=== PATIENT | male | born 1935 | race Caucasian/White ===

== ENCOUNTER → 2019-04-21 | Outpatient (CLI) | payer OTHER ==
[~2019-04-21] MED LIST: GENTAK 3 MG/M3 MG/M1 OP; NOHOMEMEDICATIONS
== END ==
LOC: M.RAD 10:39
DX: I77.810 Thoracic aortic ectasia (principal); R06.02 Shortness of breath

== ENCOUNTER → 2019-04-25 | Outpatient (CLI) | payer OTHER | LOC: M.CT 13:00 | DX: I77.810 Thoracic aortic ectasia (principal); I25.10 Atherosclerotic heart disease of native coronary artery without angina pectoris; E27.9 Disorder of adrenal gland, unspecified; J92.9 Pleural plaque without asbestos ==

== ENCOUNTER → 2021-08-15 | Outpatient (CLI) | payer OTHER ==
--- NOTE | 2021-08-15 17:05 | CARDNUC ---
[place] [address] CARDIAC NUCLEAR IMAGING REPORT Name: JAM,TERESA KRUGER Room: [facility]#: [id number] Admission: 08/15/21 Attend Phys: Jacob Yun, Discharge: Date of : 39 Date of Service: 08/15/21 1705 Report #: [id number] THIS REPORT FOR: cc: Brian Parisi MD, Dean L. MD Liston, Michael J. MD [facility] ~ APPROVED REPORT Study performed: 08/15/2021 08:47:25 Exam: Nuclear Stress Test Indication: Chest pain Patient Location: Out-Patient Stress Tech: kayy zepeda Stress Nurse: Rayna Lanier RN NM Tech:JIM Velazquez Ht: 5 ft 10 in Wt: 172 lbs BSA: 1.96 m2 BMI: 24.67 Medical History Medical History: Diabetes, HTN, Hyperlipidemia Medications: clopidogrel, eliquis, lisinopril, metoprolol, simvastatin Allergies: januvia Cardiac Risk Factors: Age, DM, HTN, Hyperlipidemia Exercise History: Indeterminate Meds Held (24 hrs): metoprolol Stress Test Details Stress Test: Pharmacologic stress testing performed using 0.4 mg of regadenoson per 5 mL given IV over 10 seconds. Reason for pharmacologic stress test: arthritis. HR Resting HR: 67 bpm Max Heart Rate (APMHR): 137 bpm Max HR Achieved: 86 bpm Target HR (85% APMHR): 116 bpm % of APMHR: 62 Recovery HR: 77 bpm BP Resting BP: 157/88 mmHg Max BP: 147/[place] [address] CARDIAC NUCLEAR IMAGING REPORT Name: JAMTERESA SLICK Room: [facility]#: [id number] Admission: 08/15/21 Attend Phys: Jacob Yun, Discharge: Date of : 39 Date of Service: 08/15/21 1705 Report #: [id number] ECG Resting ECG: Sinus Rhythm Stress ECG: Sinus Rhythm ST Change: None Arrhythmia: None Recovery ECG: Sinus Rhythm Recovery ST Change: None Recovery Arrhythmia: None Clinical Reason for Termination: Completed protocol The patient tolerated Lexiscan infusion without significant cardiac symptoms. Stress ECG Conclusion The baseline twelve-lead EKG shows sinus rhythm with some nonspecific minimal ST segment depression T wave inversion in the inferior leads. EKGs obtained during and post Lexiscan infusion show sinus rhythm with no significant ST segment changes when compared to baseline. There were no stress-induced arrhythmias. NM EXAM: Myocardial Perfusion REST/STRESS Imaging Protocol: Rest Tc-99m/Stress Tc-99m 1 day Resting Data Rest SPECT myocardial perfusion imaging was performed in supine position 30 minutes following the intravenous injection of 10.1 mCi of Tc-99m Sestamibi. Time of rest injection: 744 Date: 08/15/2021 The images were gated to evaluate regional wall motion and calculate left ventricular ejection fraction. Administration Route: IV Administration Site: Right AC Pharmacologic Stress Pharmacologic stress test was performed by injecting Regadenoson 0.4 mg IV push followed by the intravenous injection of 35.6 mCi of Tc-99m Sestamibi. Time of stress injection: 844 Date: 08/15/2021 Administration Route: IV Administration Site: Right AC Gated Stress SPECT was performed 40 minutes after stress injection. The images were gated to evaluate regional wall motion and calculate left ventricular ejection fraction. Pr[place] [address] CARDIAC NUCLEAR IMAGING REPORT Name: TERESA POLK Room: [facility]#: [id number] Admission: 08/15/21 Attend Phys: Jacob Yun, Discharge: Date of : 39 Date of Service: 08/15/21 1705 Report #: [id number] Study Quality Study: Good Artifact: Mild Diaphragmatic artifact Study Data At rest, the left ventricular ejection fraction was 73%.. Post stress, the left ventricular ejection was 74%.. TID = 0.91. Perfusion Perfusion images obtained in the supine position at rest and post Lexiscan stress show photopenia in the inferior wall that resolves with post-rest prone imaging consistent with diaphragmatic attenuation artifact. No other significant fixed or reversible defects are identified. Wall Motion Normal left ventricular wall motion. Nuclear Conclusion ECG Findings: negative for ischemia Clinical Findings: negative for ischemia Nuclear Findings: negative for ischemia Exercise Capacity: not assessed Left Ventricular Function: normal Risk Study: low Perfusion images show no defect to suggest infarct or ischemia. Left ventricular systolic function appears normal on gated studies. This is a low risk study. <Conclusion> The baseline twelve-lead EKG shows sinus rhythm with some nonspecific minimal ST segment depression T wave inversion in the inferior leads. EKGs obtained during and post Lexiscan infusion show sinus rhythm with no significant ST segment changes when compared to baseline. There were no stress-induced arrhythmias. <ELECTRONICALLY SIGNED> By: Candido Metzger MD, FACC 08/15/21 1705 04 04 Candido Metzger MD, FACC /INF
== END ==
LOC: M.NUC 07-29 09:59
PROVIDERS: ATTEND Internal Medicine
DX: I71.2 Thoracic aortic aneurysm, without rupture (principal); R07.9 Chest pain, unspecified

== ENCOUNTER → 2021-08-18 | Outpatient (CLI) | payer OTHER ==
--- NOTE | 2021-08-18 15:26 | 2DMMODE ---
[place] [address] 2 D/M-MODE ECHOCARDIOGRAM Name: JAMTERESA KRUGER Room: [facility]#: [id number] Admission: 08/18/21 Attend Phys: Jacob Yun, Discharge: Date of : 39 Date of Service: 08/18/21 1526 Report #: [id number] THIS REPORT FOR: cc: Brian Parisi MD, Dean L. MD Holkins,Bola Mauro MD LOCATED WITHIN [facility] ~ APPROVED REPORT Study performed: 08/18/2021 15:10:41 EXAM: Comprehensive 2D, Doppler, and color-flow Echocardiogram Patient Location: Out-Patient BSA: 2.00 HR: 65 bpm BP: 142/82 mmHg Other Information Study Quality: Good Indications Chest Pain 2D Dimensions IVSd: 12.66 (7-11mm) LVOT Diam: 20.63 (18-24mm) LVDd: 43.50 mm PWd: 11.46 (7-11mm) Ascending Ao: 34.15 (22-36mm) LVDs: 28.05 (25-40mm) Aortic Root: 32.79 mm Volumes Left Atrial Volume (Systole) LA ESV Index: 23.00 mL/m2 Aortic Valve AoV Peak Donald.: 1.85 m/s AO Peak Gr.: 13.62 mmHg LVOT Max P.85 mmHg AO Mean Gr.: 7.43 mmHg LVOT Mean P.44 mmHg LVOT Max V: 0.98 m/s AO V2 VTI: 42.36 cm LVOT Mean V: 0.53 m/s FERNANDA (VTI): 1.85 cm2 LVOT V1 VTI: 23.48 cm Mitral Valve E/A Ratio: 1.01 [place] [address] 2 D/M-MODE ECHOCARDIOGRAM Name: TERESA POLK Room: [facility]#: [id number] Admission: 08/18/21 Attend Phys: Jacob Yun, Discharge: Date of : 39 Date of Service: 08/18/21 1526 Report #: [id number] MV Decel. Time: 215.48 ms MV E Max Donald.: 0.73 m/s MV PHT: 62.49 ms MVA (PHT): 3.52 cm2 TDI E/Lateral E': 10.43 E/Medial E': 8.11 Medial E' Donald.: 0.09 m/s Lateral E' Donald.: 0.07 m/s Pulmonary Valve PV Peak Donald.: 0.87 m/s PV Peak Gr.: 3.01 mmHg Tricuspid Valve RAP Estimate: 5.00 mmHg TR Peak Gr.: 22.03 mmHg RVSP: 27.03 mmHg PA Pressure: 27.03 mmHg Left Ventricle The left ventricle is normal size. There is normal LV segmental wall motion. There is normal left ventricular wall thickness. Left ventricular systolic function is normal. The left ventricular ejection fraction is within the normal range. LVEF is 55-60%. The left ventricular diastolic function is normal. Right Ventricle The right ventricle is normal size. The right ventricular systolic function is normal. Atria The left atrium size is normal. The right atrium size is normal. Aortic Valve Moderate aortic valve sclerosis. Trace aortic regurgitation. No hemodynamically significant valvular aortic stenosis. Mitral Valve The mitral valve is normal in structure. Mild mitral regurgitation. No evidence of mitral valve stenosis. Tricuspid Valve The tricuspid valve is normal in structure. Mild tricuspid regurgitation[place] [address] 2 D/M-MODE ECHOCARDIOGRAM Name: JAMTERESA SLICK Room: [facility]#: [id number] Admission: 08/18/21 Attend Phys: Jacob Yun, Discharge: Date of : 39 Date of Service: 08/18/21 1526 Report #: [id number] The pulmonary valve is normal in structure. Mild pulmonic regurgitation. Great Vessels The aortic root is normal in size. IVC is normal in size and collapses >50% with inspiration. Pericardium There is no pericardial effusion. <Conclusion> The left ventricle is normal size. There is normal left ventricular wall thickness. Left ventricular systolic function is normal. The left ventricular ejection fraction is within the normal range. LVEF is 55-60%. The left ventricular diastolic function is normal. The right ventricle is normal size. The left atrium size is normal. Moderate aortic valve sclerosis. Trace aortic regurgitation. No hemodynamically significant valvular aortic stenosis. The mitral valve is normal in structure. Mild mitral regurgitation. The tricuspid valve is normal in structure. Mild tricuspid regurgitation. IVC is normal in size and collapses >50% with inspiration. There is no pericardial effusion. There is normal LV segmental wall motion. <ELECTRONICALLY SIGNED> By: Bola Sanchez MD, FACC 08/18/21 1526 1526 1526 Bola Sanchez MD, FACC /INF
== END ==
LOC: M.LAB 07-29 09:57
PROVIDERS: ATTEND Internal Medicine
DX: Z01.812 Encounter for preprocedural laboratory examination (principal); I08.8 Other rheumatic multiple valve diseases; I71.2 Thoracic aortic aneurysm, without rupture; J92.9 Pleural plaque without asbestos